=== PATIENT | female | born 1940 | race Caucasian/White ===

== ENCOUNTER → 2017-06-27 | Outpatient (CLI) | payer MEDICARE ==
[~2017-06-27] MED LIST: REGADENOSON INJ 0.4 MG/5 ML DISP.SYRIN IV ONE
--- NOTE | 2017-06-27 22:58 | RADIOLOGY REPORT ---
STRESS TEST REPORT PATIENT NAME: LOBO SCHMIDT ROOM#: DATE OF SERVICE: 06/27/2017 AGE: 76Y ORDER#: [id number] REFERRING MD: TIA MENDENHALL M.D. PROCEDURE PERFORMED: Rest/stress single-isotope Cardiolite SPECT imaging with IV Lexiscan stress and gated SPECT imaging. INDICATION: Assessment for chest pains. CLINICAL HISTORY: This 76-year-old female with history of hypertension, hypercholesterolemia currently complains of chest pains. REPORT The patient received IV Lexiscan of 0.4 mg infused over 10 seconds. The resting heart rate was 81 BPM and increased to 114 BPM at end infusion. The resting blood pressure was 115/76 and increased to 144/78 at end infusion. The patient had symptoms of flushing, nausea but no chest pains. A resting 12-lead electrocardiogram showed normal sinus rhythm 81 BPM, late transition. At end infusion, no ST changes were seen. Myocardial perfusion imaging was performed at rest 60 minutes following the injection of 12.83 mCi of Cardiolite. Ten seconds after the IV Lexiscan injection, the patient was injected with 39.2 mCi of Cardiolite and flushed. Gated post-stress tomographic imaging was performed 60 minutes after stress. SUMMARY OF FINDINGS/IMPRESSION: The overall quality of the study is fair. The left ventricular cavity is noted to be normal in size on both the rest and stress studies. There is no evidence of abnormal transient ischemic dilatation of the left ventricle. The TID ratio calculated by computer was 1.22 , this cannot be visually confirmed. SPECT images showed no evidence of IV Lexiscan infused reversible ischemia and no IV Lexiscan induced fixed defect. The gated SPECT imaging showed normal motion contraction in the wall, LV segments. The left ventricular ejection fraction is calculated at 80%. IMPRESSION: Myocardial perfusion imaging is normal. There is no IV Lexiscan induced reversible ischemia and no fixed perfusion defects. Motion and contraction in the LV segments were all normal. LVEF was calculated at 80%. No prior study for comparison. INTERPRETING PHYSICIAN: CHIQUITA VICK M.D. /: 1952M TT: [id number] ID: [id number] /: [id number] TD: [id number] JOB: [id number] cc:Lavell MOLINA M.D. > LUBNAD
== END ==
LOC: RAD 06:28
PROVIDERS: ATTEND Internal Medicine
DX: R07.9 Chest pain, unspecified (principal)
CPT/HCPCS: 93017; 78452; A9500; J2785; Q9969

== ENCOUNTER 2018-06-10 13:26 | Emergency (ER) | payer MEDICARE ==
[2018-06-10] MEDS ORDERED: AMOXICILLIN TR/POT CLAVULANATE 500-125 MG TAB PO ONE (13:37)
[2018-06-10] MEDS ORDERED: AMOXICILLIN TRIHYDRATE 500 MG CAPSULE PO ONE (13:38)
[2018-06-10] MEDS ORDERED: DIPH/PERTUSS(ACELL)/TETANUS VAC/PF 0.5 ML SYR (>=10YO) IM ONE (14:01)
--- NOTE | 2018-06-10 14:14 | RADIOLOGY REPORT (SQ) ---
EXAM DESCRIPTION: FOREARM LEFT COMPLETED DATE/TIME: 06/10/2018 2:06 pm REASON FOR STUDY: Left arm pain after dog bite COMPARISON: None. NUMBER OF VIEWS: Two views. TECHNIQUE: Two radiographic images acquired of the left forearm, including elbow and wrist in at [facility] one projection. LIMITATIONS: None. FINDINGS: MINERALIZATION: Normal. BONES: No acute fracture. No worrisome bone lesions. SOFT TISSUES: Soft tissue swelling overlying the dorsal aspect of the forearm with a few foci of soft tissue gas, likely corresponding to the dog bite. No radiopaque foreign body. No dissecting subcut aneous gas. OTHER: No other significant finding. IMPRESSION: 1. No acute fracture or dislocation of the left forearm. 2. Soft tissue swelling of the left forearm. No radiopaque foreign body. TECHNICAL DOCUMENTATION: JOB ID: [id number] [employer]- All Rights Reserved Reading location - IP/workstation name: [email or web address]
--- NOTE | 2018-06-10 14:28 | ER Document Report ---
ED Animal Bite - General Chief Complaint: Dog Bite Stated Complaint: DOG BITE Time Seen by Provider: 06/10/18 13:35 Mode of Arrival: Ambulatory Information source: Patient Notes: Patient is a 77-year-old female who presents with chief complaint of dog bite to her bilateral forearms just prior to arrival. Patient reports that she was taking her small dog out when her family members to larger pit mix dogs attacked her. The family members at bedside report that the dogs shots are up- to-date specifically the rabies shot is up-to-date. Patient is unsure when her last tetanus shot was. TRAVEL OUTSIDE OF THE [place] IN LAST 30 DAYS: No - HPI Location of injury: LUE, RUE Severity of injury: Bitten Onset: Just prior to arrival Animal's immunizations: UTD Animal control form completed: Yes Notes: Daughter at bedside states the TWO dogs who attacked her are now . - Related Data Allergies/Adverse Reactions: No Known Allergies Allergy (Verified 06/10/18 13:29) Past Medical History - General Information source: Patient - Social History Smoking Status: Never Smoker Frequency of alcohol use: None Drug Abuse: None Family History: Reviewed & Not Pertinent Patient has suicidal ideation: No Patient has homicidal ideation: No - Past Medical History Cardiac Medical History: Reports: Hx Hypercholesterolemia, Hx Hypertension Endocrine Medical History: Reports: Hx Hypothyroidism Renal/ Medical History: Denies: Hx Peritoneal Dialysis GI Medical History: Reports: Hx Gastroesophageal Reflux Disease Musculoskeletal Medical History: Reports Hx Arthritis - Immunizations Hx Diphtheria, Pertussis, Tetanus Vaccination: Yes Hx Pneumococcal Vaccination: 05/26/01 Review of Systems - Review of Systems Musculoskeletal: See HPI Skin: See HPI -: Yes All other systems reviewed and negative Physical Exam - Notes Notes: PHYSICAL EXAMINATION: GENERAL: Well-appearing, well-nourished and in no acute distress. HEAD: Atraumatic, normocephalic. EYES: Pupils equal round extraocular movements intact, conjunctiva are normal. ENT: Nares patent NECK: Normal range of motion LUNGS: No respiratory distress Musculoskeletal: Normal range of motion, swelling noted to left forearm, Cap refill less than 3 seconds, normal motor and sensation distal to injury, normal strength distal to injury. NEUROLOGICAL: Normal speech, normal gait. PSYCH: Normal mood, normal affect. SKIN: Warm, Dry, normal turgor, no rashes or lesions noted. Puncture wounds noted to patient's bilateral forearms, that are consistent with the jaws of a large dog. Course - Re-evaluation Re-evalutation: Patient with evidence of dog bites to her bilateral arms. They report that the dog's immunizations are up-to-date. Patient unsure of tetanus status. Tetanus will be updated for patient. Patient will be placed on Augmentin. Animal control bite form was filled out by patient and nursing staff. No indication for rabies prophylaxis as family member at bedside states that the dogs are always up-to-date on their immunizations and they recently had the rabies shots. Patient will be encouraged to follow-up with her primary care provider for a wound recheck in 24-48 hours, if she is unable to be seen by her primary care provider she can come here for a wound recheck. Discharge - Discharge Clinical Impression: Dog bite Qualifiers: Encounter type: initial encounter Qualified Code(s): W54.0XXA - Bitten by dog, initial encounter Condition: Stable Disposition: HOME, SELF-CARE Additional Instructions: Animal Bites Animal bites are often heavily contaminated with bacteria. In spite of thorough cleansing and proper treatment, these wounds frequently become infected. Bite wounds of the hands are especially prone to complications. Bites are dressed, if possible. Large wounds may require suturing after internal cleansing. Because of infection risk, some large wounds must remain unstitched. Your doctor is trained to advise you on the best treatment for your bite. Call the doctor at once if the wound becomes red, swollen, warm, increasingly painful, or if it begins to drain. Danger signs also include red streaks up the involved extremity, swollen glands in the groin or under the arm , or fever and chills. The risk of rabies from domestic animals is very low. Bats, sick animals, and wild animals may expose you to rabies. The physician, or the health department, will inform you if you will need to receive the rabies vaccine. Soap Cleansing Gently wash the wound daily using a mild soap (like Ivory, Phisoderm, Neutrogena). Use warm water, rubbing gently until all debris, ooze, and crusting have been washed from the wound. Allow to dry briefly (about 10 minutes) after cleaning. Repeat this cleansing at least three times a day for the first two days and then once or twice a day. Augmentin Augmentin is a mixture of amoxicillin and clavulanate. Amoxicillin is a member of the penicillin family. It covers the germs likely to cause ear, bronchial, and urinary infections better than plain penicillin. The addition of clavulanate allows it to cover staph infections of the skin, as well as resistant cases of ear and sinus infections. Your physician has chosen Augmentin for you because of the special nature of your situation. Augmentin is best taken with meals. Nausea after taking the medication is rare, but can occur. Diarrhea can occur, particularly in small children. Vaginal yeast infections, and oral thrush in infants are also common. Contact your physician if these problems occur. Allergy to penicillins is common. If you have had an allergic reaction to any drug of the penicillin family, you should never take any other penicillin. Notify your doctor at once if you develop hives, shortness of breath, swelling, or faintness. Tetanus Immunization Given You have been given an immunization against tetanus. Please record this in your records. In general, a booster is needed only once every 10 years. The tetanus shot protects against tetanus or "lockjaw," which is a complication of certain wound infections (the tetanus shot cannot protect against the actual infection). The immunization site may become warm and red due to local reaction. If this occurs, apply warm compresses and take aspirin or ibuprofen to reduce inflammation and discomfort. Return for evaluation if the reaction becomes severe. Take the medication as prescribed. As we discussed, follow-up with your primary care provider, call him tomorrow morning for an appointment I would like you to have this rechecked either tomorrow afternoon or the next morning. If you are unable to get an appointment with him you may come to the emergency room so that we can do a wound recheck. Prescriptions: Amox Tr/Potassium Clavulanate [Augmentin 875-125 mg Tablet] 1 tab PO BID #20 tablet Referrals: TIA MENDENHALL MD [Primary Care Provider] - Follow up as needed
[2018-06-10 14:59] VITALS: BP 143/93
== END 2018-06-10 15:09 | disposition home or self-care (01) ==
LOC: ER 13:26
DX: S51.852A Open bite of left forearm, initial encounter (principal); S51.851A Open bite of right forearm, initial encounter; W54.0XXA Bitten by dog, initial encounter; Y93.K9 Activity, other involving animal care; I10 Essential (primary) hypertension; Z23 Encounter for immunization
CPT/HCPCS: 99283; 90471; 73090; 90715; A9270 ×2

== ENCOUNTER → 2019-03-07 | Outpatient (CLI) | payer MEDICARE, OTHER ==
--- NOTE | 2019-03-07 11:20 | RADIOLOGY REPORT (SQ) ---
EXAM DESCRIPTION: MRI LUMBAR SPINE WITHOUT COMPLETED DATE/TIME: 03/07/2019 9:57 am REASON FOR STUDY: LUMBAR RADICULOPATHY (M54.16) M54.16 RADICULOPATHY, LUMBAR REGION COMPARISON: None. TECHNIQUE: Sagittal and Axial imaging includes T1, T2, STIR and gradient echo sequences. Coronal T2/ HASTE imaging. LIMITATIONS: None. FINDINGS: VISUALIZED UPPER ABDOMEN: Limited evaluation. No acute or suspicious findings suggested. SEGMENTATION: No transitional anatomy. The lowest well-developed disc space is labeled L5-S1. ALIGNMENT: Dextroscoliosis. VERTEBRAE: Intact. BONE MARROW: Reactive endplate changes are present at L2-3. DISC SIGNAL: There is narrowing of most of the lumbar disc spaces with loss of signal intensity. POSTERIOR ELEMENTS: Generally intact. No pars defect evident. HARDWARE: None in the spine. CORD AND CONUS: Normal in size and signal intensity. Conus at the L1-2 level. SOFT TISSUES: No aortic aneurysm seen. No bulky retroperitoneal adenopathy or mass. No paraspinal mas s or fluid. L1-L2: Left posterolateral disc/osteophyte complex with mild left foraminal stenosis. There is no ne rve entrapment. L2-L3: No significant spinal stenosis or exit foraminal stenosis. L3-L4: No significant spinal stenosis or exit foraminal stenosis. L4-L5: Mild circumferential disc bulge. Facet and ligament hypertrophy. Mild right foraminal narrow ing. Posterior narrowing of the central canal. L5-S1: Mild facet and ligament hypertrophy. No central canal or foraminal stenosis. LOWER THORACIC: Incompletely imaged. No stenosis seen. SACRUM: Visualized upper sacrum intact. OTHER: No other significant findings. IMPRESSION: Scoliosis. Facet arthropathy. Generally mild disc changes at several levels as describ ed. TECHNICAL DOCUMENTATION: JOB ID: [id number] [employer]- All Rights Reserved Reading location - IP/workstation name: [email or web address]
== END ==
LOC: RAD 09:06
PROVIDERS: ATTEND Internal Medicine
DX: M54.16 Radiculopathy, lumbar region (principal)
CPT/HCPCS: 72148

== ENCOUNTER → 2019-04-25 | Outpatient (CLI) | payer MEDICARE ==
--- NOTE | 2019-04-25 16:42 | RADIOLOGY REPORT (SQ) ---
EXAM DESCRIPTION: L SPINE W/FLEX/EXT COMPLETED DATE/TIME: 04/25/2019 3:17 pm REASON FOR STUDY: M54.5 LOW BACK PAIN M54.5 LOW BACK PAIN COMPARISON: None. NUMBER OF VIEWS: Seven views. TECHNIQUE: AP, lateral, obliques, flexion, extension, and sacral radiographic images acquired. LIMITATIONS: None. FINDINGS: MINERALIZATION: Normal. SEGMENTATION: Normal. No transitional anatomy. ALIGNMENT: S-shaped scoliosis. Grade 1 anterolisthesis of L5 on S1. FLEXION/EXTENSION: No instability. VERTEBRAE: Maintained height. No fracture or worrisome bone lesion. DISCS: Multilevel disc space narrowing with osteophytes. POSTERIOR ELEMENTS: Pedicles and facets are intact. Multilevel facet arthropathy. No pars defect or posterior arch defects. HARDWARE: None in the spine. PARASPINAL SOFT TISSUES: Normal. PELVIS: Intact as visualized. No fractures or worrisome bone lesions. SI joints intact. OTHER: No other significant finding. IMPRESSION: MULTILEVEL DEGENERATIVE CHANGES. S-SHAPED SCOLIOSIS AND GRADE 1 ANTEROLISTHESIS OF L5 O N S1. NO INSTABILITY ON FLEXION/EXTENSION. TECHNICAL DOCUMENTATION: JOB ID: [id number] [employer]- All Rights Reserved Reading location - IP/workstation name: [email or web address]
--- NOTE | 2019-04-25 16:55 | RADIOLOGY REPORT (SQ) ---
EXAM DESCRIPTION: MRI LUMBAR SPINE WITHOUT COMPLETED DATE/TIME: 04/25/2019 3:45 pm REASON FOR STUDY: M54.5 LOW BACK PAIN M54.5 LOW BACK PAIN COMPARISON: Lumbar spine 7 views 04/25/2019 Lumbar spine MRI 03/07/2019 TECHNIQUE: Sagittal and Axial imaging includes T1, T2, STIR and gradient echo sequences. Coronal T2/ HASTE imaging. LIMITATIONS: None. FINDINGS: VISUALIZED UPPER ABDOMEN: Limited evaluation. No acute or suspicious findings suggested. SEGMENTATION: No transitional anatomy. The lowest well-developed disc space is labeled L5-S1. ALIGNMENT: Convex rightward upper lumbar curvature VERTEBRAE: No compression deformities BONE MARROW: Multilevel fatty and sclerotic vertebral body endplate changes DISC SIGNAL: Diffuse decreased T2 weighted intervertebral disc signal POSTERIOR ELEMENTS: Generally intact. No pars defect evident. HARDWARE: None in the spine. CORD AND CONUS: Normal in size and signal intensity. Conus at the L1-2 level. SOFT TISSUES: No aortic aneurysm seen. No bulky retroperitoneal adenopathy or mass. No paraspinal mas s or fluid. T10-11: At the upper edge of the field of view. Moderate right foraminal narrowing from facet hyper trophy. No central canal narrowing or left foraminal stenosis T11-12: Mild posterior disc bulging, bulky bilateral facet hypertrophy. No central stenosis. Moder ate right, mild left foraminal narrowing. T12-L1: No significant posterior disc bulging. Mild bilateral facet hypertrophy with mild bilateral foraminal narrowing. L1-L2: Asymmetric left foraminal and lateral disc bulge. Asymmetric moderate left facet hypertrophy causes moderate left foraminal narrowing. No central canal stenosis or significant right foraminal n arrowing. L2-L3: Broad diffuse posterior disc bulge and moderate bilateral do a abdomen evac hypertrophy. No c entral stenosis. Moderate bilateral foraminal narrowing. L3-L4: Broad diffuse posterior disc bulge and bony spurring, moderate bilateral facet hypertrophy. N o central stenosis. Moderate right, mild left foraminal narrowing. L4-L5: Mild diffuse posterior disc bulging, bulky bilateral facet and ligament hypertrophy. Borderli ne central canal narrowing. Moderate right, mild left foraminal stenosis L5-S1: Minimal posterior disc bulging, very bulky bilateral facet hypertrophy. No central stenosis. Mild right, moderate left foraminal narrowing SACRUM: Visualized upper sacrum intact. OTHER: No other significant findings. IMPRESSION: Diffuse degenerative changes as above. No acute compression deformity TECHNICAL DOCUMENTATION: JOB ID: [id number] [employer]- All Rights Reserved Reading location - IP/workstation name: [email or web address]
== END ==
LOC: RAD 14:50
PROVIDERS: ATTEND Nurse Practitioner Family
DX: M51.36 Other intervertebral disc degeneration, lumbar region (principal); M48.061 Spinal stenosis, lumbar region without neurogenic claudication; M41.86 Other forms of scoliosis, lumbar region; M54.5 Low back pain
CPT/HCPCS: 72114; 72148

== ENCOUNTER → 2019-12-16 | Outpatient (CLI) | payer MEDICARE ==
--- NOTE | 2019-12-16 17:37 | RADIOLOGY REPORT (SQ) ---
EXAM DESCRIPTION: CTA CHEST IMAGES COMPLETED DATE/TIME: 12/16/2019 5:21 pm REASON FOR STUDY: R06.02 SHORTNESS OF BREATH R06.02 SHORTNESS OF BREATH COMPARISON: None. TECHNIQUE: CT scan of the chest performed using helical scanning technique with dynamic intravenous contrast injection. Images reviewed with lung, soft tissue and bone windows. Reconstructed coronal and sagittal MPR images reviewed. Additional 3 dimensional post-processing performed to develop Maximal Intensity Projection images (MO P). All images stored on PACS. All CT scanners at this facility use dose modulation, iterative reconstruction, and/or weight based d osing when appropriate to reduce radiation dose to as low as reasonably achievable (ALARA). [facility]: Dose Right [facility]: CareDose [facility]: Dose Right [facility]: Teradose 4D [facility]: HelloFax CONTRAST TYPE AND DOSE: contrast/concentration: Isovue 350.00 mg/ml; Total Contrast Delivered: 64.0 ml; Total Saline Delivered: 68.9 ml Contrast bolus adequate for pulmonary arteries and aorta. RENAL FUNCTION: GFR > 60. RADIATION DOSE: CT Rad equipment meets quality standard of care and radiation dose reduction techniq ues were employed. CTDIvol: 18.6 - 19.8 mGy. DLP: 644 mGy-cm. . LIMITATIONS: None. FINDINGS: LUNGS AND PLEURA: No masses, infiltrates, or pneumothorax. No pleural effusions or pleura l calcifications. AORTA AND GREAT VESSELS: No aneurysm. Contrast bolus not optimized for the aorta. HEART: No pericardial effusion. PULMONARY ARTERIES: No emboli visualized in the main pulmonary arteries or the segmental branches. HILAR AND MEDIASTINAL STRUCTURES: No identified masses or abnormal nodes. HARDWARE: None in the chest. UPPER ABDOMEN: Large hiatal hernia. THYROID AND OTHER SOFT TISSUES: No masses. No adenopathy. BONES: No acute or significant finding. 3D MIPS: Confirm above findings. OTHER: No other significant finding. IMPRESSION: No PE. No acute findings. COMMENT: Quality ID # [id number]: Final reports with documentation of one or more dose reduction techniques (e.g., Automated exposure control, adjustment of the mA and/or kV according to patient size, use of iterative reconstruction technique) TECHNICAL DOCUMENTATION: JOB ID: [id number] 2010 [employer]- All Rights Reserved Reading location - IP/workstation name: [email or web address]
== END ==
LOC: RAD 16:44
PROVIDERS: ATTEND Internal Medicine
DX: R06.02 Shortness of breath (principal); K44.9 Diaphragmatic hernia without obstruction or gangrene
CPT/HCPCS: 71275; 82565